=== PATIENT | male | born 1970 | race Caucasian/White ===

== ENCOUNTER 2024-12-30 14:11 | Emergency (ER) | payer OTHER ==
[2024-12-30] MEDS ORDERED: Nitroglycerin 0.4 MG TAB 1 EACH ONE (14:28)
[2024-12-30 14:52] LABS: #Basophils 0.1 thou/uL (0.0-0.2); #Eosinophils 0.2 thou/uL (0.0-0.7); #Lymphocytes 1.9 thou/uL (1.20-3.40); #Monocytes 0.7 thou/uL (0.11-0.59); #Neutrophils 6.8 thou/uL (1.40-6.50); %Basophils 0.9 % (0.0-1.0); %Eosinophils 2.1 % (0.0-10.0); %Lymphocytes 19.6 % (21.0-51.0); %Monocytes 7.1 % (0.0-10.0); %Neutrophils 70.3 % (42.0-75.0); Hematocrit 46.8 % (42.0-52.0); Hemoglobin 16.5 g/dL (14.0-18.0); Mean Corpuscular Hemoglobin 33.4 pg (27.0-31.0); Mean Corpuscular Volume 94.6 fl (78.0-98.0); Platelet Count 231 10x3/uL (130-400); Red Blood Cell (RBC) Count 4.95 mill/uL (4.70-6.10); White Blood Cell (WBC) Count 9.7 10x3/uL (4.8-10.8)
[2024-12-30 14:57] LABS: INR-International Normal Ratio 1.1; Prothrombin Time 14.1 sec (12.0-14.7)
[2024-12-30 14:58] LABS: PTT 28.9 sec (22.9-36.1)
[2024-12-30 15:00] LABS: ALT (SGPT) 63 U/L (Less than 45); AST (SGOT) 41 U/L (11-34); Albumin 4.2 g/dL (3.1-4.5); Alkaline Phosphatase 86 U/L (40-110); Anion Gap 14 mmol/L (10-20); BUN (Urea Nitrogen) 12 mg/dL (8.4-25.7); Bilirubin, Total 0.8 mg/dL (0.3-1.2); Calc. Creatinine Clearance 0 mL/min (70-130); Calcium 9.3 mg/dL (7.8-10.44); Carbon Dioxide 22 mmol/L (22-29); Chloride 105 mmol/L (98-107); Globulin 2.8 g/dL (2.4-3.5); Glucose 136 mg/dL (70-105); Potassium 3.7 mmol/L (3.5-5.1); Sodium 137 mmol/L (136-145)
[2024-12-30 15:02] LABS: Troponin I 0.174 ng/mL (< 0.028)
[2024-12-30] MEDS ORDERED: Acetaminophen 500 MG TAB ONE (15:02)
[2024-12-30] MEDS ORDERED: Enoxaparin 30 MG (0.3 mL) SYRINGE ONE (15:20)
== END 2024-12-30 16:35 | disposition short-term general hospital (02) ==
LOC: NAV ERS 14:11
DX: I24.9 Acute ischemic heart disease, unspecified (principal); I10 Essential (primary) hypertension; Z79.899 Other long term (current) drug therapy
CPT/HCPCS: 71046; 80053; 83880; 84484; 85025; 85610; 85730; 93005; 94760; 96372; J1650